=== PATIENT | female | born 1975 | race Caucasian/White ===

== ENCOUNTER → 2016-05-19 | Outpatient (CLI) | payer BC ==
--- NOTE | 2016-05-19 16:18 | MRI ---
Study: MRI of the Right Wrist. Indication: Ulnar-sided wrist pain Technique: Multiplanar, multi sequence MRI of the right wrist was obtained without intravenous contrast. Comparison: None. Findings: Scapholunate ligament is poorly defined and at least partial-thickness tearing of the central substance and volar band suspected. No full-thickness transection and no widening of the interval. Lunotriquetral ligament intact. No acute fracture. The central substance of the TFC is thin but without fluid-filled tear defect. Small distal radioulnar joint effusion. Ulnar variance neutral. Extensor tendons, flexor tendons, flexor retinaculum, median nerve, ulnar nerve unremarkable. 10 mm ganglion versus synovial recess volar/radial margin radio scaphoid joint. Impression: Suspected partial thickness tearing central substance and volar band scapholunate ligament without full-thickness tear defect or widening interval. MR arthrography could better evaluate as clinically indicated. Small distal radioulnar joint effusion. Thinning of the TFC without fluid-filled tear or defect. 10 mm ganglion volar margin radio scaphoid joint. Electronically signed by: Khai Bautista MD 05/19/2016 4:17 PM CDT
== END | disposition home or self-care (01) ==
LOC: MRI 13:10
PROVIDERS: ATTEND Family Medicine
DX: M25.431 Effusion, right wrist (principal); M25.531 Pain in right wrist

== ENCOUNTER → 2016-06-16 | Outpatient (CLI) | payer BC | LOC: LAB.O 16:25 | PROVIDERS: ATTEND Psychiatry & Neurology Neuromuscular Medicine | DX: R53.1 Weakness (principal) ==

== ENCOUNTER → 2016-11-22 | Outpatient (CLI) | payer BC ==
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
== END ==
LOC: MRI 07:10
PROVIDERS: ATTEND Family Medicine
DX: M25.511 Pain in right shoulder (principal); M19.011 Primary osteoarthritis, right shoulder; M75.81 Other shoulder lesions, right shoulder

== ENCOUNTER → 2017-06-20 | Outpatient (CLI) | payer BC | LOC: GMAJ 15:06 | PROVIDERS: ATTEND Family Medicine | DX: R94.5 Abnormal results of liver function studies (principal) ==

== ENCOUNTER → 2017-06-26 | Outpatient (CLI) | payer BC | LOC: LAB.O 15:32 | PROVIDERS: ATTEND Otolaryngology | DX: E03.8 Other specified hypothyroidism (principal) ==

== ENCOUNTER → 2017-06-28 | Outpatient (CLI) | payer BC | LOC: US 10:00 | PROVIDERS: ATTEND Family Medicine | DX: R94.5 Abnormal results of liver function studies (principal) ==

== ENCOUNTER → 2017-08-21 | Outpatient (CLI) | payer BC ==
--- NOTE | 2017-08-21 11:04 | MRI ---
Study: MRI of the Left Shoulder. Indication: DISLOCATION OF LEFT SHOULDER Technique: Multiplanar, multi sequence MRI of the left shoulder was obtained without intravenous contrast. Comparison: None. Findings: Mild AC joint osteoarthritis. Type I acromion with mild lateral downsloping. Trace subacromial/subdeltoid bursal fluid. Supraspinatus and infraspinatus tendinosis with scattered bursal surface fraying of both tendons. Subscapularis tendinosis. Teres minor tendon intact. Rotator cuff musculature normal without atrophy, fatty infiltration, or intramuscular edema. Subtle intracapsular long head biceps tendinosis. Prior labral repair suspected with suture anchors at the 12:00 position and 3:00 position with associated susceptibility artifact. Mild concavity of the anterior margin of the humeral head with surrounding marrow edema concerning for an acute reverse Hill-Sachs fracture. No reverse osseous Bankart lesion identified. There is circumferential labral truncation with reduction in labral caliber by approximately 50% throughout. Subtle areas of free edge and undersurface fraying noted throughout the labrum as well but without fluid-filled labral tear defect. Minimal glenohumeral joint osteoarthritis noted. Impression: Small acute-appearing reverse Hill-Sachs fracture without associated osseous Bankart lesion. Humeral head normally located at this time. Circumferential labral truncation with free edge and undersurface fraying but without fluid-filled tear defect or detachment. Supraspinatus and infraspinatus tendinosis with scattered bursal surface fraying of both tendons. Subscapularis tendinosis. Subtle intracapsular long head biceps tendinosis. Prior anterior and superior labral repair suspected. Mild AC joint osteoarthritis. Electronically signed by: Khai Bautista MD 08/21/2017 11:02 AM CDT
== END ==
LOC: MRI 07:00
PROVIDERS: ATTEND Family Medicine
DX: S43.085A Other dislocation of left shoulder joint, initial encounter (principal); S42.202A Unspecified fracture of upper end of left humerus, initial encounter for closed fracture; M19.012 Primary osteoarthritis, left shoulder

== ENCOUNTER → 2017-12-07 | Outpatient (CLI) | payer BC ==
--- NOTE | 2017-12-08 11:44 | CT ---
EXAM DESCRIPTION: Maxillofacial w/wo Contrast CLINICAL HISTORY: 42 years Female, ACUTE SINUSITIS COMPARISON: None. FINDINGS: Precontrast axial CT images show normal appearance of the lower portions of the brain, orbital contents and skull base with normal aeration of tympanic cavities and mastoid air cells. No fluid levels in the paranasal sinuses. There is extensive petrous apical pneumatization. Normal appearance the internal auditory canals and middle ear ossicles and inner ear structures. Normal TMJ alignment. After IV contrast, repeat scanning was performed showing normal enhancement of the vessels of the [place]. Normal carotid arterial and jugular venous enhancement in the upper neck. Symmetrical appearance of submandibular and parotid salivary glands. Coronal images show previous nasal antral window surgery with bilateral ethmoidectomy and uncinectomy. No mucosal thickening or fluid level seen on the coronal images. No erosion of the scutum on either side. Normal aeration of tympanic cavities and mastoid air cells as included. There is bilateral anterior clinoid aeration with potential for optic nerve exposure. No [place] cells pneumatization. No dehiscence of the optic or carotid canals. Bilateral sphenoid bony septa extend to the carotid floors. There is prominent right more than left pterygoid and inferolateral recess pneumatization. Intact lamina papyracea bilaterally. No evidence of old medial or inferior orbital blowout fracture. No anterior ethmoidal arterial exposure. Symmetrical cribriform plate with 3.7 mm right and 3.3 mm left olfactory fossa depth, Keros type II. Sagittal reformatted images show intact floor of the sella. Sellar pneumatization pattern is seen with thin but intact posterior bony wall of the sphenoid sinus/upper clivus measuring 1 to 2 mm in thickness. IMPRESSION: No mucosal thickening or fluid to suggest acute sinusitis. Postoperative changes as described. Electronically signed by: Emery Tripp MD 12/08/2017 11:43 AM CDT
== END ==
LOC: CT 15:19
PROVIDERS: ATTEND Nurse Practitioner Family
DX: J01.90 Acute sinusitis, unspecified (principal)

== ENCOUNTER → 2018-01-05 | Outpatient (CLI) | payer BC ==
--- NOTE | 2018-01-08 16:29 | MAM ---
EXAM DESCRIPTION: 3D Screening BILATERAL : Digital Mammography. CLINICAL HISTORY: 42 years Female SCREENING . No complaints or personal history of breast cancer. Remote family history of breast cancer. Childbirth. Premenopausal. No HRT.. Lifetime risk of developing breast cancer (Tyrer-Cuzick model)(%): 10.2. COMPARISON: Baseline study at this facility. No prior reports available. TECHNIQUE: Bilateral CC and MLO projection full-field images, digital tomosynthesis mammographic technique. Bilateral digital 2-D full-field MLO images. CAD not available for tomosynthesis or 2-D images. FINDINGS: The breast parenchymal density pattern is: Heterogeneously dense breast tissue, which may obscure small masses. No skin thickening or nipple retraction. Focal asymmetry in the lower inner quadrant of the middle third of the right breast at the 3:30 clock position approximately 5 cm from the nipple. Not associated with microcalcifications. No focal, stellate mass or density, focal asymmetry , and no suspicious microcalcifications left breast. IMPRESSION: BI-RADS CATEGORY: 0 - INCOMPLETE- Need additional imaging evaluation. FOLLOW-UP: Recall for additional imaging: Targeted right breast ultrasound of the region of interest. Follow-up diagnostic digital mammographic imaging if indicated by ultrasound findings.. Written communication concerning the IMPRESSION and Follow-up, will be mailed to the patient and referring health care provider.. Electronically signed by: Portillo Patel MD 01/08/2018 4:27 PM [facility]
== END ==
LOC: MAMMO 12:30
PROVIDERS: ATTEND Obstetrics & Gynecology
DX: Z12.31 Encounter for screening mammogram for malignant neoplasm of breast (principal)

== ENCOUNTER 2018-01-16 21:02 | Emergency (ER) | payer BC ==
[2018-01-16] MEDS ORDERED: SODIUM CHLORIDE 0.9% 1000ML 1,000 ML IVS ONE (21:33)
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
[2018-01-17 00:31] VITALS: BP 123/76; TEMP 97.8; O2SAT 100
== END 2018-01-17 00:27 | disposition home or self-care (01) ==
LOC: ER 21:02
DX: T14.90XA Injury, unspecified, initial encounter (principal); R10.9 Unspecified abdominal pain; M54.9 Dorsalgia, unspecified; M25.551 Pain in right hip; J45.909 Unspecified asthma, uncomplicated; K21.9 Gastro-esophageal reflux disease without esophagitis; V40.5XXA Car driver injured in collision with pedestrian or animal in traffic accident, initial encounter; Y92.410 Unspecified street and highway as the place of occurrence of the external cause
CPT/HCPCS: 36415; 70450; 71260; 74177; 80053; 81001; 83690; 84703; 85025; J7030

== ENCOUNTER → 2018-03-28 | Outpatient (CLI) | payer BC ==
--- NOTE | 2018-03-29 11:33 | US ---
EXAM DESCRIPTION: Breast,Right: Ultrasound CLINICAL HISTORY: 42 yearsFemaleABNORMAL MAMMO COMPARISON: Digital screening tomosynthesis bilateral breasts 01/05/2018. TECHNIQUE: Transcutaneous scanning of the right breast utilizing giordano-scale and Doppler modes. Scanning performed by the central office installer and Dr. Patel. FINDINGS: Scanning medial right breast and lower outer quadrant 2:00 to 4:00 positions. Predominantly dense fibroglandular echoes with minimal fatty echotexture. No dominant solid mass or distinct cyst. No parenchymal edema or large calcifications. No overlying skin changes. No abnormal vascularity. IMPRESSION: Benign exam. BIRAD CATEGORY: 2 BENIGN FINDINGS. RECOMMENDATIONS: FOLLOW UP: Routine digital bilateral mammographic screening, one year interval from prior screening, December 2017, (December 2018.) The FINDINGS and the FOLLOW-UP plan were reviewed in person with the patient after the examination. Written communication explaining the IMPRESSION and FOLLOW-UP will be mailed to the patient and referring care provider. According to the [employer], yearly mammograms are recommended starting at age 40 and continuing as long as a woman is in good health. Any breast change noted on a breast self-exam should be reported promptly to the patient's healthcare provider. Breast MRI is recommended for women with an approximately 20-25% or greater lifetime risk of breast cancer, including women with a strong family history of breast or ovarian cancer and women who have been treated for Hodgkin's disease. A negative mammographic report should not delay tissue diagnosis in patients with significant clinical history or physical findings. Extremely dense breast tissue limits the sensitivity of digital mammography. Electronically signed by: Portillo Patel MD 03/29/2018 11:31 AM [facility]
== END ==
LOC: MAMMO 12:48
PROVIDERS: ATTEND Obstetrics & Gynecology
DX: R92.8 Other abnormal and inconclusive findings on diagnostic imaging of breast (principal)

== ENCOUNTER → 2019-01-07 | Outpatient (CLI) | payer BC ==
--- NOTE | 2019-01-08 20:20 | MAM ---
EXAM DESCRIPTION: 3D Screening BILATERAL : Digital Mammography. CLINICAL HISTORY: 43 years Female SCREEN . No complaints. No personal history of breast cancer. Remote family history of breast cancer. Menarche age 16. Childbirth. Premenopausal. No HRT.. Lifetime risk of developing breast cancer (Tyrer-Cuzick model)(%): 10.1. COMPARISON: Bilateral screening digital breast tomosynthesis 05 January 2019.. Directed ultrasound of the right breast 28 March 2018. TECHNIQUE: Bilateral CC and MLO projection full-field images, digital tomosynthesis mammographic technique. Bilateral digital 2-D full-field MLO images. CAD not available for tomosynthesis or 2-D images. FINDINGS: The breast parenchymal density pattern is: Heterogeneously dense breast tissue, which may obscure small masses. No skin thickening or nipple retraction. Bilateral solitary microcalcifications. Skin mole on the right breast. No new focal, stellate mass or density, focal asymmetry , and no suspicious microcalcifications bilaterally. Stable mammograms compared to prior study. IMPRESSION: Benign exam. BIRAD CATEGORY: 2 BENIGN FINDINGS. RECOMMENDATIONS: FOLLOW UP: Routine digital bilateral mammographic screening, one year interval from December 2018. Written communication explaining the IMPRESSION and follow-up, will be mailed to the patient and referring health care provider. According to the [employer], yearly mammograms are recommended starting at age 40 and continuing as long as a woman is in good health. Any breast change noted on a breast self-exam should be reported promptly to the patient's healthcare provider. Breast MRI is recommended for women with an approximately 20-25% or greater lifetime risk of breast cancer, including women with a strong family history of breast or ovarian cancer and women who have been treated for Hodgkin's disease. A negative mammographic report should not delay tissue diagnosis in patients with significant clinical history or physical findings. Extremely dense breast tissue limits the sensitivity of digital mammography. Electronically signed by: Portillo Patel MD 01/08/2019 8:19 PM HAT CHECKER
== END ==
LOC: MAMMO 12:30
PROVIDERS: ATTEND Obstetrics & Gynecology
DX: Z12.31 Encounter for screening mammogram for malignant neoplasm of breast (principal)

== ENCOUNTER → 2020-01-28 | Outpatient (CLI) | payer BC ==
--- NOTE | 2020-01-30 20:09 | MAM ---
EXAM DESCRIPTION: 3D Screening BILATERAL : Digital Mammography. CLINICAL HISTORY: 44 years Female SCREENING . No complaints. Remote family history of breast cancer. Menarche age 16. Childbirth age 31. Premenopausal. RT. Lifetime risk of developing breast cancer (Tyrer-Cuzick model)(%): 10.0. COMPARISON: Bilateral screening digital breast tomosynthesis December 2017 and December 2018. TECHNIQUE: Bilateral CC and MLO projection full-field images, digital tomosynthesis mammographic technique. Bilateral digital 2-D full-field MLO images. CAD available for 2-D images. FINDINGS: The breast parenchymal density pattern is: Heterogeneously dense breast tissue, which may obscure small masses. Axillary lymph nodes. Solitary microcalcifications. No skin thickening or nipple retraction No new focal, stellate mass or density, focal asymmetry , and no suspicious microcalcifications bilaterally. Stable mammograms compared to prior study. IMPRESSION: Benign exam. BIRAD CATEGORY: 2 BENIGN FINDINGS. RECOMMENDATIONS: FOLLOW UP: Routine digital bilateral mammographic screening, one year interval from January 2020. Written communication explaining the IMPRESSION and follow-up, will be mailed to the patient and referring health care provider. According to the [employer], yearly mammograms are recommended starting at age 40 and continuing as long as a woman is in good health. Any breast change noted on a breast self-exam should be reported promptly to the patient's healthcare provider. Breast MRI is recommended for women with an approximately 20-25% or greater lifetime risk of breast cancer, including women with a strong family history of breast or ovarian cancer and women who have been treated for Hodgkin's disease. A negative mammographic report should not delay tissue diagnosis in patients with significant clinical history or physical findings. Extremely dense breast tissue limits the sensitivity of digital mammography. Electronically signed by: Portillo Patel MD 01/30/2020 8:07 PM HELP DESK SPECIALIST
== END ==
LOC: MAMMO 15:03
PROVIDERS: ATTEND Obstetrics & Gynecology
DX: Z12.31 Encounter for screening mammogram for malignant neoplasm of breast (principal)